=== PATIENT | female | born 1990 | race Caucasian/White ===

== ENCOUNTER 2021-02-28 17:55 | Emergency (ER) | payer OTHER ==
[~2021-02-28] VITALS: Ht 170.2 cm; Wt 59.0 kg
[2021-02-28] MEDS ORDERED: COSENTYX P150 MG/1 M SUB-Q (18:22)
[2021-02-28] MEDS ORDERED: METOPROLOL SUCC25 MG PO (18:22)
[2021-02-28] MEDS ORDERED: AMITRIPTYLINE H50 MG PO (18:23)
[2021-02-28] MEDS ORDERED: OMEPRAZOLE20 MG PO (18:23)
[2021-02-28] MEDS ORDERED: METOPROLOL TART25 MG PO (18:47)
--- NOTE | 2021-02-28 20:36 | EKG ---
[facility] [address] [facility] [place], [place] [address] Signed Sinus tachycardia Otherwise normal ECG No previous ECGs available Confirmed by SILVESTRE VALENTINE DO ([id number]) on 02/28/2021 8:36:38 PM Electronically Signed By: SILVESTRE VALENTINE DO 02/28/212035 PATIENT NAME: PARISH RIBEIRO Electrocardiogram DATE OF : 89 PHYSICIAN: SILVESTRE VALENTINE DO REPORT #: [id number] REPORT IS CONFIDENTIAL AND NOT TO BE RELEASED WITHOUT AUTHORIZATION
== END 2021-02-28 20:10 | disposition home or self-care (01) ==
LOC: ED 17:55
DX: R00.0 Tachycardia, unspecified (principal); Z79.899 Other long term (current) drug therapy
CPT/HCPCS: 80053; 83735; 84443; 85025; 93005; 93010; 99285-25